=== PATIENT | female | born 1980 | race Caucasian/White ===

== ENCOUNTER 2017-11-16 16:27 | Emergency (ER) | payer BC ==
[~2017-11-16] VITALS: Ht 170.2 cm; Wt 98.7 kg
[~2017-11-16 16:27] MED LIST: ALBUTEROL SULF8.5 GM; B COMPLETE1 EACH PO; BENADRYL50 MG PO; BUSPAR PO; CIPRO500 MG PO; CLEOCIN300 MG PO; CLINDAMYCIN HC300 MG PO; EFFEXOR PO; ERGOCALCIF50000 UNIT PO; FIORICET WI1 CAPSULE PO; FIORICET,ESG1 TABLET PO; HYDROCODON-ACE1 EAC7 PO; LYRICA PO; MACROBID100 MG PO; MONTELUKAST SOD10 MG PO; MOTRIN; MOTRIN600 MG PO; MOTRIN800 MG PO; NORCO 5/3251 TABLET PO; PREDNISONE20 MG PO; PREVACID30 MG PO; PRILOSEC40 MG PO; REGLAN10 MG PO; REPAN 50-325-41 EAC1 PO; SINGULAIR PO; TOPAMAX100 MG PO; TOPAMAX200 MG PO; TOPAMAX50 MG PO; TOPIRAMATE100 MG PO; TRAMADOL HCL50 MG PO; TRAZODONE PO; TYLENOL REGULA325 MG PO; ULTRAM50 MG PO; VITAMIN D5000 UNI1 PO; ZYRTEC10 M3 PO; [UNRECOGNIZED DRUG - REMARK]
[2017-11-16 17:13] LABS: HEMATOCRIT 41.6 % (36.0-46.0); MCH 30.3 PG (29.0-34.0); MCHC 34.1 G/DL (30.0-36.0); MCV 88.9 FL (83-99); MEAN PLAT.VOLUME 9.8 uM^3 (9.5-12.4); PLATELET COUNT 251 K/uL (156-360); RBC DIS.WIDTH-CV 12.4 % (11.8-14.6); RBC DIS.WIDTH-SD 40.3 % (39-53); RED BLOOD COUNT 4.68 M/uL (3.80-5.20); WHITE BLOOD COUNT 4.8 K/uL (4.1-10.2)
[2017-11-16 17:20] LABS: CHLORIDE 108 mEq/L (99-109); POTASSIUM 3.6 mEq/L (3.7-5.4); SODIUM 139 mEq/L (136-147)
[2017-11-16 17:22] LABS: GLUCOSE 111 mg/dL (70-99)
[2017-11-16 17:23] LABS: ANION GAP 11 MEQ/L (2-14)
[2017-11-16 17:26] LABS: GFR ESTIMATE (CALCULATED) > 59 mL/min/
[2017-11-16 17:27] LABS: UREA NITROGEN (BUN) 7 mg/dL (9-23)
[2017-11-16 17:32] LABS: TROP-I INTERPRETATION NEGATIVE; TROPONIN-I < 0.01 ng/mL (0.0-0.30)
[2017-11-16] MEDS ORDERED: MONTELUKAST SOD10 MG PO (19:08)
[2017-11-16] MEDS ORDERED: PROAIR HFA8.5 GM IH (19:08)
[2017-11-16] MEDS ORDERED: ZYRTEC10 M3 PO (19:09)
[2017-11-16] MEDS ORDERED: PROVENTIL,2.5 MG/3 M IH (19:11)
[2017-11-16] MEDS ORDERED: PREDNISONE50 MG PO (19:12)
[2017-11-16 19:24] VITALS: BP 114/71
== END 2017-11-16 19:31 | disposition home or self-care (01) ==
LOC: EME 16:27
DX: J20.9 Acute bronchitis, unspecified (principal); J45.909 Unspecified asthma, uncomplicated; K21.9 Gastro-esophageal reflux disease without esophagitis; M79.7 Fibromyalgia; G25.81 Restless legs syndrome; F32.9 Major depressive disorder, single episode, unspecified; F41.9 Anxiety disorder, unspecified; K44.9 Diaphragmatic hernia without obstruction or gangrene; Z88.2 Allergy status to sulfonamides; Z88.0 Allergy status to penicillin; Z88.1 Allergy status to other antibiotic agents; Z88.8 Allergy status to other drugs, medicaments and biological substances; Z90.49 Acquired absence of other specified parts of digestive tract
CPT/HCPCS: 71020; 80048; 84484; 85027; 94640; 94664; 99281; 99284; J7512